=== PATIENT | male | born 1980 | race Caucasian/White ===

== ENCOUNTER 2020-10-25 13:01 | Emergency (ER) | payer OTHER ==
[2020-10-25 15:58] LABS: HEMOGLOBIN 14.9 gm/dl (14.0-17.5); RED BLOOD COUNT 4.88 M/UL (4.20-5.50); WHITE BLOOD COUNT 8.6 K/UL (4.5-11.0)
[2020-10-25 16:14] LABS: BUN/CREATININE RATIO 13 (0-10)
[2020-10-25] MEDS ORDERED: KEPPRA750 MG PO (18:01)
== END 2020-10-25 18:20 | disposition home or self-care (01) ==
LOC: ER1 13:01
PROVIDERS: Physician Assistant Medical
DX: R55 Syncope and collapse (principal); G40.909 Epilepsy, unspecified, not intractable, without status epilepticus; Z76.0 Encounter for issue of repeat prescription; Z88.0 Allergy status to penicillin; Z90.89 Acquired absence of other organs
CPT/HCPCS: 70450; 71045; 80053; 81001; 82550; 82553; 83690; 83874; 84484; 85025; 85379; 93005; 96374; 96375; 99285; J1885; J2405

== ENCOUNTER 2021-01-21 00:07 | Emergency (ER) | payer OTHER ==
[~2021-01-21 00:07] MED LIST: KEPPRA750 MG PO
[2021-01-21] MEDS ORDERED: NORFLEX 100 MG100 MG PO (01:19)
[2021-01-21] MEDS ORDERED: LODINE CAP 300300 MG PO (01:19)
== END 2021-01-21 01:40 | disposition home or self-care (01) ==
LOC: ER1 00:07
DX: M62.830 Muscle spasm of back (principal); M62.838 Other muscle spasm; F17.290 Nicotine dependence, other tobacco product, uncomplicated; Z90.89 Acquired absence of other organs; Z88.0 Allergy status to penicillin; Z79.899 Other long term (current) drug therapy
CPT/HCPCS: 96372; 99283; J1885; J2360

== ENCOUNTER 2021-01-23 23:07 | Emergency (ER) | payer OTHER ==
[~2021-01-23 23:07] MED LIST changes: +LODINE CAP 300300 MG PO; +NORFLEX 100 MG100 MG PO
[2021-01-24 09:58] LABS: HEMOGLOBIN 13.8 gm/dl (14.0-17.5); RED BLOOD COUNT 4.47 M/UL (4.20-5.50); WHITE BLOOD COUNT 9.2 K/UL (4.5-11.0)
[2021-01-24 10:21] LABS: BUN/CREATININE RATIO 11 (0-10)
== END 2021-01-24 13:05 ==
LOC: ER1 23:07
PROVIDERS: Emergency Medicine
DX: R45.851 Suicidal ideations (principal); F17.290 Nicotine dependence, other tobacco product, uncomplicated; Z20.822 Contact with and (suspected) exposure to COVID-19
CPT/HCPCS: 80053; 80307; 81001; 85025; 93005; 99285; U0002

== ENCOUNTER 2022-04-07 09:26 | Emergency (ER) | payer OTHER ==
[2022-04-07] MEDS ORDERED: PEPCID40 MG PO (11:27)
[2022-04-07] MEDS ORDERED: BENADRYL25 MG PO (11:27)
[2022-04-07] MEDS ORDERED: MEDROL DOSEPAK 24 MG PO (11:27)
== END 2022-04-07 11:32 | disposition home or self-care (01) ==
LOC: ER1 09:26
DX: L50.0 Allergic urticaria (principal); F17.200 Nicotine dependence, unspecified, uncomplicated; Z88.0 Allergy status to penicillin
CPT/HCPCS: 96372; 99282; J2930